=== PATIENT | female | born 1990 | race Caucasian/White ===

== ENCOUNTER 2017-04-04 23:40 | Emergency (ER) | payer MEDICAID ==
--- NOTE | 2017-04-05 00:10 | ER NURSING DOCUMENTATION ---
Nurse's Notes [facility] Name:Mckenna Armijo Age:26 yrs Sex:Female :1990 Arrival Date:04/04/2017 Time:23:40 Bed1 Private MD: Diagnosis:Insect Bite-to neck;Muscle Spasm Presentation: 04/04 23:57 Presenting complaint: Patient states: bug bite to back of neck. Transition of care: lb Camp. Notified ED Physician of Dr. Novoa notified. 23:57 Acuity: SHANTHI 5 lb 23:57 Method Of Arrival: Walk In Triage Assessment: 23:58 Bite description: bite sustained to scalp by an unknown animal. General: Appears in no lb apparent distress, Behavior is appropriate for age. Pain: Complains of pain in scalp. 04/05 00:08 Bite description: bite sustained to scalp is from insect was sustained 1-2 hours ago. lb animal information: vaccination(s) is unknown. Historical: - Allergies: No known drug Allergies; - Home Meds: 1. None - PMHx: None; - PSHx: Appendectomy; Cholecysectomy; Hysterectomy; - Tetanus: < 10 years. - Ebola Screening: : Patient denies exposure to infectious person. Patient denies travel to an Ebola-affected area in the 21 days before illness onset. . - Immunization history: Flu Vaccine < 1 year. - Social history: Smoking status: Patient states was never smoker of tobacco. Patient/guardian denies using alcohol. - Code Status:: Full code. Screenin/16 23:59 Infectious Disease Risk None. Abuse screen: Denies threats or abuse. Denies injuries lb from another. Nutritional screening: No deficits noted. Assessment: 23:59 See Triage Assessment done by same RN. lb Vital Signs: 23:59 BP 124 / 89; Pulse 73; Resp 14; Temp 98; Pulse Ox 97% on R/A; Weight 69.85 kg; Height 5 lb ft. 5 in. (165.10 cm); Pain 5/10; 23:59 Body Mass Index 25.63 (69.85 kg, 165.10 cm) lb ED Course: 23:44 Patient arrived in ED. ma1 23:54 Paddy Novoa MD is Attending Physician. cd 23:57 Sobia Barnes is Primary Nurse. lb 23:57 Triage completed. lb 23:59 Valuables Remains with patient. lb Administered Medications: 04/05 00:07 Drug: Cyclobenzaprine 10 mg; Route: PO; lb 00:07 Follow up: Response: Dispensed at discharge. lb 00:07 Drug: Ibuprofen 600 mg; Route: PO; lb 00:07 Follow up: Response: Dispensed at discharge. lb Outcome: 04/04 23:56 Discharge ordered by . nancy 04/05 00:07 Discharged to [facility] Condition: good Discharge Assessment: Patient awake, alert and oriented x 3. No cognitive and/or functional deficits noted. Patient verbalized understanding of disposition instructions. Instructed on discharge instructions. 00:09 Patient left the ED. lb Signatures: Paddy Novoa MD MD cd Bollock, Lynda lb Addison, Melissa ma1
--- NOTE | 2017-04-05 00:10 | ER PHYSICIAN DOCUMENTATION ---
Physician Documentation [facility] Name:Mckenna Armijo Age:26 yrs Sex:Female :1990 Arrival Date:04/04/2017 Time:23:40 Bed1 Private MD: Paddy De La Torre Disposition: 04/05 00:04 Chart complete. cd Disposition: 04/04/17 23:56 Discharged to Home/Self Care. Impression: Insect Bite - to neck, Muscle Spasm. - Condition is Good. - Discharge Instructions: bee sting - INSECT BITE. - Prescriptions for Cyclobenzaprine 10 mg Oral - take 1 tablet by ORAL route every 8 hours; 20 tablet. - Medical Reconciliation form form. - Follow up: Private Physician; When: 7 - 10 days; Reason: Recheck today's complaints, Continuance of care. - Problem is new. - Symptoms are unchanged. - Notes: Take Ibuprofen 600mg by mouth with food every 6 hours for 2 days. Take Flexeril 10mg by mouth every 8 hours for 4 - 5 days Apply ice packs to tender area. Rest. Drink plenty of fluids. HPI: 04/04 23:59 This 26 yrs old Female presents to ER via Walk In with complaints of Insect cd Bite. 23:59 The patient was bitten on the scalp and back of neck, by an unknown animal or organism, cd for an unknown reason, outdoors. Onset: The symptom(s)/episode began/occurred acutely, just prior to arrival. Associated signs and symptoms: Pertinent positives: pain at site, muscle aching, Pertinent negatives: erythema at site, fever, swelling at site. Severity of symptoms: At their worst the symptoms were moderate, in the emergency department the symptoms are unchanged. Historical: - Allergies: No known drug Allergies; - Home Meds: 1. None - PMHx: None; - PSHx: Appendectomy; Cholecysectomy; Hysterectomy; - Tetanus: < 10 years. - Ebola Screening: : Patient denies exposure to infectious person. Patient denies travel to an Ebola-affected area in the 21 days before illness onset. . - Immunization history: Flu Vaccine < 1 year. - Social history: Smoking status: Patient states was never smoker of tobacco. Patient/guardian denies using alcohol. - Code Status:: Full code. ROS: 04/05 Cardiovascular: Negative for chest pain, palpitations, edema and pleuritic pain. cd Respiratory: Negative for shortness of breath, dyspnea on exertion, cough, sputum production, wheezing, hemoptysis and pleuritic chest pain. 04/05 00:00 MS/Extremity: Negative for injury, deformity, edema, calf tenderness, pain or coldness. cd Constitutional: Negative for chills, fever, poor PO intake. Skin: Positive for very small insect bite, Negative for cellulitis, diaphoresis, ecchymosis, erythema, lesions, rash, swelling. Exam: Eyes: Pupils equal round and reactive to light, extra-ocular motions intact. Lids and lashes normal. Conjunctiva and sclera are non-icteric and not injected. Cornea within normal limits. Periorbital areas with no swelling, redness, or edema. ENT: Nares patent. No nasal discharge, no septal abnormalities noted. Tympanic membranes are normal and external auditory canals are clear. Oropharynx with no redness, swelling, or masses, exudates, or evidence of obstruction, uvula midline. Mucous membranes moist. Cardiovascular: Regular rate and rhythm with a normal S1 and S2. No gallops, murmurs, or rubs. Normal PMI, no JVD. No pulse deficits. Respiratory: Lungs have equal breath sounds bilaterally, clear to auscultation and percussion. No rales, rhonchi or wheezes noted. No increased work of breathing, no retractions or nasal flaring. 00:01 Neuro: Awake and alert, GCS 15, oriented to person, place, time, and situation. cd Cranial nerves II-XII grossly intact. Motor strength 5/5 in all extremities. Sensory grossly intact. Cerebellar exam normal. Normal gait. 00:01 Constitutional: The patient appears alert, awake, non-diaphoretic, non-toxic, well developed, well nourished, anxious. 00:01 Head/face: Noted is small crusted blood on her posterior scalp where she itched.. 00:01 Neck: External neck: very small bite, No insect seen, no ticks found. 00:04 Skin: Appearance: normal except for affected area, minor bite to posterior neck with cd no signs of swelling or cellulitis. Vital Signs: 04/04 23:59 BP 124 / 89; Pulse 73; Resp 14; Temp 98; Pulse Ox 97% on R/A; Weight 69.85 kg; Height 5 lb ft. 5 in. (165.10 cm); Pain 5/10; 23:59 Body Mass Index 25.63 (69.85 kg, 165.10 cm) lb MDM: 23:54 Patient medically screened. cd 04/05 00:03 Differential diagnosis: Spider bite, muscle spasms. Infection risk factors: No risk cd factors present. Data reviewed: vital signs, nurses notes, old medical records, and as a result, I will discharge patient. Data interpreted: Pulse oximetry: on room air is 97 %. Interpretation: normal. Counseling: I had a detailed discussion with the patient and/or guardian regarding: the historical points, exam findings, and any diagnostic results supporting the discharge/admit diagnosis, the need for outpatient follow up, for a recheck, with the patient's primary care provider, to return to the emergency department if symptoms worsen or persist or if there are any questions or concerns that arise at home. 04/04 23:54 Order name: Ice Packs; Complete Time: 00:07 cd Dispensed Medications: 00:07 Drug: Cyclobenzaprine 10 mg; Route: PO; lb 00:07 Follow up: Response: Dispensed at discharge. lb 00:07 Drug: Ibuprofen 600 mg; Route: PO; lb 00:07 Follow up: Response: Dispensed at discharge. lb Signatures: Paddy Novoa MD MD cd Bollock, Lynda lb
[2017-04-05] MEDS ORDERED: CYCLOBENZAPRINE HCL 10 MG TABLET PO ONE (00:14)
[2017-04-05] MEDS ORDERED: IBUPROFEN 600 MG TABLET PO ONE (00:14)
== END 2017-04-05 00:10 | disposition home or self-care (01) ==
LOC: ER 23:40 → EDSEX 23:40 → ER 04-05 00:10
DX: S10.86XA Insect bite of other specified part of neck, initial encounter (principal); W57.XXXA Bitten or stung by nonvenomous insect and other nonvenomous arthropods, initial encounter; Y92.89 Other specified places as the place of occurrence of the external cause; M62.838 Other muscle spasm
CPT/HCPCS: 99283